=== PATIENT | female | born 1980 | race American Indian/Alaskan Native ===

== ENCOUNTER 2017-08-18 16:18 | Emergency (ER) | payer SELFPAY ==
[2017-08-18 16:36] VITALS: BP 130/75
[2017-08-18 17:14] LABS: Bacteria,Urine 1+ /HPF (Negative); Bilirubin,Urine NEG (Negative); Blood,Urine MOD (Negative); Color,Urine Yellow (Yellow); Mucus,Urine FEW /HPF; Nitrite,Urine NEG (Negative); Protein,Urine <15 mg/dL mg/dL (Negative); Urobilinogen,Urine < 2.0 mg/dL (<2.0)
[2017-08-18 17:43] LABS: Mean Corpuscular HGB Conc 28 % (30-34); Platelet Count 248 K/mm3 (140-440); Red Blood Count 3.62 M/mm3 (3.65-5.03)
[2017-08-18 17:47] LABS: Hematocrit 22.1 % (30.3-42.9); Hemoglobin 6.2 gm/dl (10.1-14.3); Mean Corpuscular Hemoglobin 17 pg (28-32); Mean Corpuscular Volume 61 fl (79-97)
[2017-08-18 18:07] LABS: Alanine Aminotransferase 13 units/L (7-56); Albumin 4.3 g/dL (3.9-5); BUN/Creatinine Ratio 10; Blood Urea Nitrogen 7 mg/dL (7-17); Calcium 9.3 mg/dL (8.4-10.2); Hemolysis Index 0
[2017-08-18 18:25] LABS: Total Cells Counted 100
[2017-08-18 18:26] LABS: Platelet Estimate Consistent w Auto
[2017-08-18 18:27] LABS: Anisocytosis 2+; Hypochromasia 3+; Target Cells 1+
== END 2017-08-18 17:12 | disposition left against medical advice (07) ==
LOC: ED 16:18
DX: R07.9 Chest pain, unspecified (principal); R10.9 Unspecified abdominal pain; Z53.21 Procedure and treatment not carried out due to patient leaving prior to being seen by health care provider
CPT/HCPCS: 36415; 80053; 81001; 84484; 85007; 85025; 93005; 93010